=== PATIENT | male | born 1990 | race Two or more races ===

== ENCOUNTER → 2017-12-10 | Outpatient (CLI) | payer OTHER | END | disposition home or self-care (01) | LOC: HKI 14:01 | DX: S82.892D Other fracture of left lower leg, subsequent encounter for closed fracture with routine healing (principal); W34.00XD Accidental discharge from unspecified firearms or gun, subsequent encounter | CPT/HCPCS: Z7500 ==

== ENCOUNTER → 2018-02-20 | Outpatient (CLI) | payer OTHER | END | disposition home or self-care (01) | LOC: HKI 10:18 | DX: S83.522D Sprain of posterior cruciate ligament of left knee, subsequent encounter (principal); W34.00XD Accidental discharge from unspecified firearms or gun, subsequent encounter | CPT/HCPCS: 73560; 73560-LT ==